=== PATIENT | male | born 1995 | race Caucasian/White ===

== ENCOUNTER 2022-12-07 16:01 | Emergency (ER) | payer OTHER, SELFPAY ==
[2022-12-07 16:06] VITALS: BP 159/92; PULSE 76; RESP 15; TEMP 36.8; O2SAT 96; BMI 26.2
--- NOTE | 2022-12-07 17:20 | W.ED.UPPEXIN ---
HPI - Extremity Injury (Upper) General: Chief Complaint: Needlestick/Injury/Exposure Stated Complaint: needle stick History of Present Illness: 27-year-old male patient comes in today with needlestick puncture wound to the left thumb. 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 Patient accidentally stuck himself with a IV needle that had been used to start an IV with his patient. Patient reports that his tetanus is up-to-date. Patient appears nontoxic. No significant or obvious injury is noted. Review of Systems General: Reports: 10 or more systems reviewed and unremarkable except in HPI and below Const: Denies: fever(s) Resp: Denies: dyspnea GI: Denies: nausea or vomiting Skin/Breast: Reports: new lesions Physical Exam Const: COMMON NORMALS: alert HENMT: COMMON NORMALS: normocephalic HEAD & SCALP: normocephalic Neck/C-Spine: COMMON NORMALS: full ROM Resp: COMMON NORMALS: normal respiratory effort Cardio: COMMON NORMALS: regular rate RATE: regular rate Back/Pelvis: COMMON NORMALS: thoracic and lumbar spine normal to inspection Extremity: COMMON NORMALS: normal to inspection Neuro: SENSORIUM/ORIENTATION: Yes alert Skin: TRAUMA: puncture (Superficial puncture wound to the left thumb. Clean no bleeding) Course Vital Signs: Vital signs: Vital Signs Temperature 98.3 F 12/07/22 16:06 Pulse Rate 76 12/07/22 16:06 Respiratory Rate 15 12/07/22 16:06 Blood Pressure 159/92 12/07/22 16:06 Pulse Oximetry 96 12/07/22 16:06 Oxygen Delivery Me thod 12/07/22 16:06 MDM - Extremity Injury (Upper) Medical Decision Making 27-year-old male patient comes in for evaluation of needlestick from a use IV start needle. On exam the left thumb where patient was punctured indicates no significant injury or bleeding. Differential diagnosis includes but not limited to needlestick injury of finger, exposure to blood-borne pathogen, need for prophylaxis tetanus, need for postexposure antiviral treatment plan. Reviewed exam with patient with recommendations for treatment and follow-up. Patient was aware of benefits and negatives for use of PEP treatment. Patient at this time opted not to go forward with medications. Blood draws were done for HIV, hepatitis, CBC and CMP. Patient tetanus was up-to-date. Patient was recommended to follow-up with Workmen's Comp. provider for further treatment and evaluation. Patient stated understanding. Discharge Plan Discharge Patient Disposition: Home Clinical Impression: Needlestick injury of finger Condition: Stable Discharge Orders: Discharge ED (Routine); Ordered 12/07/22 Ordered By: Bart Silvestre Discharge Diet: Usual diet Discharge Activity: Resume usual activity Patient Instructions: Needle Stick Injuries (ED) Activity Restrictions/Additional Instructions: Follow-up with Workmen's Comp. provider for review of labs and need for further evaluation and treatment. Return to the ER as needed. Coding Level of Care Code ED Parlor Maid for Marycarmen Jackson
[2022-12-07 17:48] VITALS: PULSE 83; RESP 18; O2SAT 100
[2022-12-07 17:49] LABS: Basophils # 0.1 10^3/uL (0.0-0.1); Basophils % 0.6 %; Eosinophils # 0.1 10^3/uL (0.0-0.8); Eosinophils % 1.3 %; Hematocrit 46.5 % (42.0-52.0); Hemoglobin 15.5 g/dL (11.7-16.6); Lymphocytes # 2.1 10^3/uL (0.8-4.8); Lymphocytes % 23.6 %; Mean Corpuscular HGB Conc 33.3 g/dL (30.0-36.0); Mean Corpuscular Hemoglobin 29.6 pg (28.0-34.0); Mean Corpuscular Volume 88.9 fl (80-94); Mean Platelet Volume 10.4 fL (7.4-10.4); Monocytes # 0.6 10^3/uL (0.2-0.9); Neutrophils # 6.04 10^3/uL (1.8-7.7); Neutrophils % 66.8 %; Nucleated Red Blood Cells % 0 %; Platelet Count 266 10^3/cmm (130-400); Red Blood Count 5.23 10^6/uL (4.1-5.3); Red Cell Distribution Width 12.3 % (12.1-15.1)
[2022-12-07 18:04] LABS: Alanine Aminotransferase 26 U/L (0-41); Albumin Level 5.3 g/dL (3.5-5.2); Alkaline Phosphatase 80 U/L (40-130); Anion Gap 17.5 (5-19); Aspartate Amino Transferase 24 U/L (0-40); Blood Urea Nitrogen 19 mg/dL (6-20); Carbon Dioxide 27 mmol/L (22-29); Chloride 100 mmol/L (98-107); Globulin 2.4 g/dL (1.3-4.6); Glomerular Filtration Rate 101.2 mL/min (90-130); Glucose 100 mg/dL (65-115); Osmolality Calculated 292 mOsm/kg (285-295); Potassium 4.5 mmol/L (3.5-5.1); Sodium 140 mmol/L (136-145); Total Bilirubin 0.3 mg/dL (0.15-1.2); Total Protein 7.7 g/dL (6.6-8.7)
[2022-12-07 19:10] LABS: HIV 1 & 2 Antibody Non-Reactive (Non-Reactiv); HIV 1 & 2 Antigen Non-Reactive (Non-Reactiv)
[2022-12-07 20:43] LABS: Hepatitis A Antibody IgM Non-Reactive (Nonreactive); Hepatitis B Core IgM Non-Reactive (Nonreactive); Hepatitis B Surface Antigen Non-Reactive (Nonreactive); Hepatitis C Virus Antibody Non-Reactive (Nonreactive)
== END 2022-12-07 17:48 | disposition home or self-care (01) ==
PROVIDERS: Emergency Provider Nurse Practitioner Family
DX: S61.032A Puncture wound without foreign body of left thumb without damage to nail, initial encounter (principal); W46.1XXA Contact with contaminated hypodermic needle, initial encounter
CPT/HCPCS: 36415; 80053; 80074; 85025; 87806; 99283

== ENCOUNTER → 2023-01-25 13:11 | Outpatient (BNVA) | payer OTHER, SELFPAY | PROVIDERS: Visit Provider Nurse Practitioner Family | DX: Z20.89 Contact with and (suspected) exposure to other communicable diseases (principal) | CPT/HCPCS: 80053 ==